=== PATIENT | female | born 1945 | race Caucasian/White ===

== ENCOUNTER 2023-07-29 15:25 | Inpatient (IN) | payer OTHER ==
[2023-07-29] MEDS ORDERED: SODIUM CHLORIDE 1,769 ML IV ONE (16:36)
[2023-07-29] MEDS ORDERED: ACETAMINOPHEN 1000 MG/100 ML BAG IVPB ONE (17:20)
[2023-07-29] MEDS ORDERED: ACETAMINOPHEN INJECTION 100 ML IVPB ONE (17:21)
[2023-07-29 17:27] LABS: VENOUS BASE EXCESS 3.5 mmol/L (-2-2); VENOUS O2 SATURATION 74.2 % (70-80); VENOUS PCO2 35.6 mmHg (38-52); VENOUS PH 7.493 (7.310-7.410)
[2023-07-29 17:33] LABS: BASO % 0.1 % (0-2.0); HEMATOCRIT 34.2 % (32.4-45.2); HEMOGLOBIN 11.2 GM/dL (10.7-15.3); LYMPH % 7.3 % (8-40); MCH 30.7 pg (25.7-33.7); MCHC 32.9 g/dl (32.0-36.0); MEAN CELL VOLUME 93.5 fl (80-96); MONO % 6.3 % (3.8-10.2); NEUT % 86.3 % (42.8-82.8); PLATELET COUNT 297 10^3/uL (134-434); RBC 3.66 M/mm3 (3.60-5.2); RDW 16.8 % (11.6-15.6); WHITE BLOOD COUNT 7.8 K/mm3 (4.0-10.0)
[2023-07-29 17:42] LABS: INR 2.71 (0.83-1.09); PROTHROMBIN TIME (PATIENT) 31.1 SEC (9.7-13.0)
[2023-07-29 17:44] LABS: ACTIVATED PTT 35.5 SECONDS (25.2-36.5)
[2023-07-29 17:49] LABS: CHLORIDE 125 mmol/L (98-107); SODIUM 156 mmol/L (136-145)
[2023-07-29 17:51] LABS: ALBUMIN 2.5 g/dl (3.4-5.0); BLOOD UREA NITROGEN 49.1 mg/dL (7-18); CO2 27 mmol/L (21-32)
[2023-07-29 17:52] LABS: GLUCOSE,RANDOM 108 mg/dL (74-106)
[2023-07-29 17:54] LABS: CREATININE 0.8 mg/dL (0.55-1.3); SGOT/AST 20 U/L (15-37)
[2023-07-29 17:55] LABS: SGPT/ALT 17 U/L (13-61)
[2023-07-29 17:56] LABS: BILIRUBIN,TOTAL 1.4 mg/dL (0.2-1); TOT PROT 6.1 g/dl (6.4-8.2)
[2023-07-29 17:57] LABS: ALK PHOS 117 U/L (45-117)
[2023-07-29 17:59] LABS: LACTIC ACID 2.2 mmol/L (0.4-2.0)
[2023-07-29 18:04] LABS: ANION GAP 4 mmol/L (4-13); POTASSIUM 2.4 mmol/L (3.5-5.1)
[2023-07-29] MEDS ORDERED: SODIUM CHLORIDE 0.45% 1,000 ML IV SCH (18:30)
[2023-07-29] MEDS ORDERED: KCL 10 MEQ IVPB 10 MEQ/100 ML INFUS.BAG IVPB ONE ×3 (18:52→21:54)
[2023-07-29] MEDS: KCL 10 MEQ IVPB 10 MEQ/100 ML INFUS.BAG IVPB SCH ×3 (18:58→21:59)
[2023-07-29] MEDS ORDERED: SODIUM PHOSPHATE/NA BIPHOS 133 ML ENEMA PR ONE (20:46)
[2023-07-29 22:11] LABS: EPI CELLS 4 /uL (0-25.1); HYALINE CASTS 7 /uL (0-3.1); URINE APPEARANCE CLOUDY; URINE BACTERIA >9,000 /uL (0-1359); URINE BILIRUBIN 1+ (NEGATIVE); URINE COLOR DK YELLOW; URINE GLUCOSE (UA) NEGATIVE (NEGATIVE); URINE KETONE TRACE (NEGATIVE); URINE LEUK ESTERASE 1+ (NEGATIVE); URINE NITRITE POSITIVE (NEGATIVE); URINE PROTEIN 1+ (NEGATIVE); URINE RBC 14 /uL (0-23.9); URINE WBC 297 /uL (0-25.8)
[2023-07-29 22:14] LABS: POTASSIUM 3.4 mmol/L (3.5-5.1)
[2023-07-29 22:16] LABS: BLOOD UREA NITROGEN 49.9 mg/dL (7-18)
[2023-07-29] MEDS ORDERED: CEFTRIAXONE 1,000 MG in DEXTROSE 5%-WATER - 50 ML IVPB ONE (22:17)
[2023-07-29] MEDS ORDERED: CEFTRIAXONE 1 GM/50 ML BAG ONE (22:50)
[2023-07-29 22:57] LABS: CALCIUM 7.2 mg/dL (8.5-10.1); CREATININE 0.7 mg/dL (0.55-1.3)
[2023-07-30 07:47] LABS: BASO % 0.3 % (0-2.0); EOS % 0.1 % (0-4.5); HEMATOCRIT 31.6 % (32.4-45.2); HEMOGLOBIN 10.4 GM/dL (10.7-15.3); LYMPH % 7.1 % (8-40); MCH 31.3 pg (25.7-33.7); MCHC 32.9 g/dl (32.0-36.0); MEAN CELL VOLUME 94.9 fl (80-96); MEAN PLT VOLUME 7.5 fl (7.5-11.1); MONO % 5.5 % (3.8-10.2); PLATELET COUNT 258 10^3/uL (134-434); RBC 3.33 M/mm3 (3.60-5.2); RDW 16.7 % (11.6-15.6); WHITE BLOOD COUNT 6.9 K/mm3 (4.0-10.0)
[2023-07-30 08:29] LABS: CHLORIDE 123 mmol/L (98-107); SODIUM 154 mmol/L (136-145)
[2023-07-30 08:43] LABS: ALBUMIN 2.2 g/dl (3.4-5.0); CALCIUM 7.6 mg/dL (8.5-10.1); CO2 24 mmol/L (21-32)
[2023-07-30 08:44] LABS: BLOOD UREA NITROGEN 45.2 mg/dL (7-18)
[2023-07-30 08:46] LABS: CREATININE 0.7 mg/dL (0.55-1.3); GLUCOSE,RANDOM 90 mg/dL (74-106)
[2023-07-30 08:47] LABS: SGOT/AST 17 U/L (15-37); SGPT/ALT 14 U/L (13-61)
[2023-07-30 08:48] LABS: BILIRUBIN,TOTAL 1.1 mg/dL (0.2-1); TOT PROT 5.5 g/dl (6.4-8.2)
[2023-07-30 08:49] LABS: ALK PHOS 105 U/L (45-117)
[2023-07-30 08:56] LABS: ANION GAP 7 mmol/L (4-13); POTASSIUM 2.3 mmol/L (3.5-5.1)
[2023-07-30] MEDS ORDERED: CEFTRIAXONE 1 GM/50 ML BAG ONE (09:05)
[2023-07-30] MEDS ORDERED: HEPARIN NA (PORCINE) 5,000 UNITS/ML 1ML VIAL ONE (09:05)
[2023-07-30] MEDS: HEPARIN NA (PORCINE) 5,000 UNITS/ML 1ML VIAL SQ SCH ×2 (09:10→21:42)
[2023-07-30] MEDS ORDERED: CEFTRIAXONE 1 GM in DEXTROSE 5%-WATER - 50 ML IVPB SCH (10:00)
[2023-07-30] MEDS: POTASSIUM CHLORIDE ORAL LIQUID 20 MEQ/15 ML PO ONE ×2 (12:00→12:01)
[2023-07-30] MEDS: KCL 10 MEQ IVPB 10 MEQ/100 ML INFUS.BAG IVPB SCH ×6 (12:00→23:16)
[2023-07-30] MEDS ORDERED: KCL 10 MEQ IVPB 20 MEQ/200 ML INFUS.BAG IVPB ONE (12:52)
[2023-07-30] MEDS ORDERED: POTASSIUM CHLORIDE ORAL LIQUID 20 MEQ/15 ML PO ONE ×2 (13:31→22:00)
[2023-07-30] MEDS ORDERED: KCL 10 MEQ IVPB 10 MEQ/100 ML INFUS.BAG IVPB ONE ×2 (13:39→15:21)
[2023-07-30] MEDS ORDERED: MAGNESIUM SULF 50% (8.12 MEQ/2 ML-1 GM VIAL) IVPB ONE (14:00)
[2023-07-30] MEDS ORDERED: MAGNESIUM SULFATE IN WATER 2 GM/50 ML IVPB IVPB ONE (14:21)
[2023-07-30] MEDS: D5-1/2NS+40 MEQ KCL - 40 MEQ/1,000 ML INFUS.BAG IV SCH (15:20)
[2023-07-30 16:14] LABS: CHLORIDE 124 mmol/L (98-107)
[2023-07-30 16:17] LABS: CALCIUM 7.8 mg/dL (8.5-10.1)
[2023-07-30 16:18] LABS: BLOOD UREA NITROGEN 46.7 mg/dL (7-18); CO2 25 mmol/L (21-32); GLUCOSE,RANDOM 84 mg/dL (74-106)
[2023-07-30 16:21] LABS: CREATININE 0.6 mg/dL (0.55-1.3)
[2023-07-30 16:28] LABS: ANION GAP 1 mmol/L (4-13); POTASSIUM 2.4 mmol/L (3.5-5.1); SODIUM 150 mmol/L (136-145)
[2023-07-30] MEDS ORDERED: BISACODYL 10 MG SUPP.RECT PR ONE (17:51)
[2023-07-30] MEDS ORDERED: KCL 10 MEQ IVPB 10 MEQ/100 ML INFUS.BAG IVPB SCH (18:00)
[2023-07-30] MEDS ORDERED: BISACODYL 10 MG SUPP.RECT ONE (18:23)
[2023-07-30 23:20] LABS: MAGNESIUM 1.9 mg/dL (1.8-2.4)
[2023-07-30 23:24] LABS: PHOSPHOROUS 2.8 mg/dL (2.5-4.9)
[2023-07-31] MEDS: KCL 10 MEQ IVPB 10 MEQ/100 ML INFUS.BAG IVPB SCH ×4 (00:28→17:30)
[2023-07-31 07:35] LABS: BASO % 0.2 % (0-2.0); EOS % 0.3 % (0-4.5); HEMATOCRIT 30.5 % (32.4-45.2); LYMPH % 8.5 % (8-40); MCHC 32.7 g/dl (32.0-36.0); MEAN CELL VOLUME 94.8 fl (80-96); MEAN PLT VOLUME 7.6 fl (7.5-11.1); MONO % 5.7 % (3.8-10.2); NEUT % 85.3 % (42.8-82.8); PLATELET COUNT 251 10^3/uL (134-434); RBC 3.21 M/mm3 (3.60-5.2); RDW 16.7 % (11.6-15.6); WHITE BLOOD COUNT 5.6 K/mm3 (4.0-10.0)
[2023-07-31 08:00] LABS: CHLORIDE 126 mmol/L (98-107); SODIUM 154 mmol/L (136-145)
[2023-07-31 08:14] LABS: ALBUMIN 2.2 g/dl (3.4-5.0); BLOOD UREA NITROGEN 46.6 mg/dL (7-18); CALCIUM 7.7 mg/dL (8.5-10.1); CO2 24 mmol/L (21-32); GLUCOSE,RANDOM 94 mg/dL (74-106); MAGNESIUM 2.6 mg/dL (1.8-2.4)
[2023-07-31 08:17] LABS: SGOT/AST 15 U/L (15-37); SGPT/ALT 14 U/L (13-61)
[2023-07-31 08:18] LABS: CREATININE 0.6 mg/dL (0.55-1.3); TOT PROT 5.4 g/dl (6.4-8.2)
[2023-07-31 08:19] LABS: ALK PHOS 97 U/L (45-117); BILIRUBIN,TOTAL 0.8 mg/dL (0.2-1)
[2023-07-31 08:22] LABS: ANION GAP 4 mmol/L (4-13); POTASSIUM 2.8 mmol/L (3.5-5.1)
[2023-07-31] MEDS: HEPARIN NA (PORCINE) 5,000 UNITS/ML 1ML VIAL SQ SCH ×2 (10:55→22:36)
[2023-07-31] MEDS: PIPERACILLIN/TAZOB 2.25 GM 2.25 GM in DEXTROSE 5%-WATER - 50 ML IVPB SCH ×2 (10:56→18:33)
[2023-07-31 14:54] VITALS: BMI 17.9
[2023-07-31] MEDS: D5-1/2NS+40 MEQ KCL - 40 MEQ/1,000 ML INFUS.BAG IV SCH (15:33)
[2023-07-31] MEDS: THIAMINE HCL 100 MG TABLET (FP) PO SCH (15:34)
[2023-08-01] MEDS: PIPERACILLIN/TAZOB 2.25 GM 2.25 GM in DEXTROSE 5%-WATER - 50 ML IVPB SCH ×3 (04:13→17:05)
[2023-08-01 08:12] LABS: BASO % 0.2 % (0-2.0); EOS % 0.2 % (0-4.5); HEMATOCRIT 29.5 % (32.4-45.2); HEMOGLOBIN 9.6 GM/dL (10.7-15.3); LYMPH % 8.6 % (8-40); MCH 30.6 pg (25.7-33.7); MCHC 32.6 g/dl (32.0-36.0); MEAN CELL VOLUME 93.8 fl (80-96); MEAN PLT VOLUME 7.5 fl (7.5-11.1); MONO % 5.6 % (3.8-10.2); NEUT % 85.4 % (42.8-82.8); PLATELET COUNT 231 10^3/uL (134-434); RBC 3.14 M/mm3 (3.60-5.2); RDW 17.1 % (11.6-15.6); WHITE BLOOD COUNT 4.6 K/mm3 (4.0-10.0)
[2023-08-01 08:29] LABS: CHLORIDE 127 mmol/L (98-107); SODIUM 153 mmol/L (136-145)
[2023-08-01 08:35] LABS: ALBUMIN 2.2 g/dl (3.4-5.0); BLOOD UREA NITROGEN 43.5 mg/dL (7-18); CALCIUM 7.8 mg/dL (8.5-10.1); CO2 27 mmol/L (21-32); GLUCOSE,RANDOM 112 mg/dL (74-106)
[2023-08-01 08:38] LABS: CREATININE 0.6 mg/dL (0.55-1.3); SGPT/ALT 13 U/L (13-61)
[2023-08-01 08:39] LABS: SGOT/AST 15 U/L (15-37)
[2023-08-01 08:40] LABS: BILIRUBIN,TOTAL 0.8 mg/dL (0.2-1); TOT PROT 5.3 g/dl (6.4-8.2)
[2023-08-01 08:41] LABS: ALK PHOS 89 U/L (45-117)
[2023-08-01 08:51] LABS: ANION GAP -1 mmol/L (4-13); POTASSIUM 2.9 mmol/L (3.5-5.1)
[2023-08-01] MEDS: HEPARIN NA (PORCINE) 5,000 UNITS/ML 1ML VIAL SQ SCH ×2 (09:20→21:41)
[2023-08-01] MEDS: THIAMINE HCL 100 MG TABLET (FP) PO SCH ×2 (09:21→10:12)
[2023-08-01 10:04] LABS: MAGNESIUM 2.3 mg/dL (1.8-2.4)
[2023-08-01] MEDS: KCL 10 MEQ IVPB 10 MEQ/100 ML INFUS.BAG IVPB SCH ×3 (10:09→12:15)
[2023-08-01] MEDS: D5-1/2NS+40 MEQ KCL - 40 MEQ/1,000 ML INFUS.BAG IV SCH (12:15)
[2023-08-01] MEDS: SENNOSIDES 8.6MG TABLET (FP) PO SCH ×2 (21:42→21:50)
[2023-08-02] MEDS: PIPERACILLIN/TAZOB 2.25 GM 2.25 GM in DEXTROSE 5%-WATER - 50 ML IVPB SCH ×3 (03:00→17:34)
[2023-08-02 07:36] LABS: BASO % 0.2 % (0-2.0); EOS % 0.7 % (0-4.5); HEMATOCRIT 27.6 % (32.4-45.2); HEMOGLOBIN 9.1 GM/dL (10.7-15.3); LYMPH % 10.7 % (8-40); MCH 31.2 pg (25.7-33.7); MCHC 32.9 g/dl (32.0-36.0); MEAN CELL VOLUME 94.8 fl (80-96); MEAN PLT VOLUME 7.6 fl (7.5-11.1); MONO % 6.8 % (3.8-10.2); NEUT % 81.6 % (42.8-82.8); PLATELET COUNT 205 10^3/uL (134-434); RBC 2.91 M/mm3 (3.60-5.2); RDW 16.7 % (11.6-15.6); WHITE BLOOD COUNT 3.6 K/mm3 (4.0-10.0)
[2023-08-02 07:51] LABS: CHLORIDE 132 mmol/L (98-107); SODIUM 155 mmol/L (136-145)
[2023-08-02 07:53] LABS: ALBUMIN 1.9 g/dl (3.4-5.0); BLOOD UREA NITROGEN 36.5 mg/dL (7-18); CALCIUM 7.2 mg/dL (8.5-10.1); CO2 24 mmol/L (21-32); GLUCOSE,RANDOM 96 mg/dL (74-106)
[2023-08-02 07:56] LABS: SGPT/ALT 11 U/L (13-61)
[2023-08-02 07:57] LABS: CREATININE 0.5 mg/dL (0.55-1.3); SGOT/AST 16 U/L (15-37)
[2023-08-02 07:58] LABS: BILIRUBIN,TOTAL 0.6 mg/dL (0.2-1); TOT PROT 4.8 g/dl (6.4-8.2)
[2023-08-02 07:59] LABS: ALK PHOS 80 U/L (45-117)
[2023-08-02 08:05] LABS: ANION GAP 0 mmol/L (4-13); POTASSIUM 2.6 mmol/L (3.5-5.1)
[2023-08-02] MEDS: KCL 10 MEQ IVPB 10 MEQ/100 ML INFUS.BAG IVPB SCH ×3 (08:53→11:09)
[2023-08-02] MEDS: HEPARIN NA (PORCINE) 5,000 UNITS/ML 1ML VIAL SQ SCH ×2 (09:59→21:43)
[2023-08-02] MEDS: THIAMINE HCL 100 MG TABLET (FP) PO SCH ×2 (10:07→13:14)
[2023-08-02] MEDS: POTASSIUM CHLORIDE ORAL LIQUID 20 MEQ/15 ML PO SCH ×3 (10:08→21:43)
[2023-08-02] MEDS: FAMOTIDINE 20 MG TABLET PO SCH ×3 (11:06→21:43)
[2023-08-02 12:05] LABS: IRON SERUM 22 ug/dL (50-175); TOTAL IRON BINDING CAPACITY 117 ug/dL (250-450)
[2023-08-02] MEDS: D5-1/2NS+40 MEQ KCL - 40 MEQ/1,000 ML INFUS.BAG IV SCH (13:46)
[2023-08-02] MEDS: SENNOSIDES 8.6MG TABLET (FP) PO SCH (21:43)
[2023-08-03] MEDS: PIPERACILLIN/TAZOB 2.25 GM 2.25 GM in DEXTROSE 5%-WATER - 50 ML IVPB SCH ×3 (02:00→17:16)
[2023-08-03] MEDS: D5-1/2NS+40 MEQ KCL - 40 MEQ/1,000 ML INFUS.BAG IV SCH (03:31)
[2023-08-03 07:07] LABS: BASO % 0.5 % (0-2.0); EOS % 0.6 % (0-4.5); HEMATOCRIT 27.7 % (32.4-45.2); HEMOGLOBIN 8.9 GM/dL (10.7-15.3); LYMPH % 12.6 % (8-40); MCH 30.7 pg (25.7-33.7); MCHC 32.1 g/dl (32.0-36.0); MEAN CELL VOLUME 95.8 fl (80-96); MEAN PLT VOLUME 7.5 fl (7.5-11.1); MONO % 7.8 % (3.8-10.2); NEUT % 78.5 % (42.8-82.8); PLATELET COUNT 209 10^3/uL (134-434); RBC 2.89 M/mm3 (3.60-5.2); RDW 17.1 % (11.6-15.6); WHITE BLOOD COUNT 3.1 K/mm3 (4.0-10.0)
[2023-08-03 07:18] LABS: CHLORIDE 131 mmol/L (98-107); SODIUM 156 mmol/L (136-145)
[2023-08-03 07:25] LABS: CALCIUM 7.5 mg/dL (8.5-10.1)
[2023-08-03 07:26] LABS: BLOOD UREA NITROGEN 29.2 mg/dL (7-18); CO2 22 mmol/L (21-32); GLUCOSE,RANDOM 92 mg/dL (74-106)
[2023-08-03 07:28] LABS: CREATININE 0.6 mg/dL (0.55-1.3); SGOT/AST 16 U/L (15-37)
[2023-08-03 07:29] LABS: SGPT/ALT 12 U/L (13-61)
[2023-08-03 07:30] LABS: BILIRUBIN,TOTAL 0.6 mg/dL (0.2-1); TOT PROT 4.9 g/dl (6.4-8.2)
[2023-08-03 07:31] LABS: ALK PHOS 81 U/L (45-117)
[2023-08-03 07:37] LABS: ANION GAP 3 mmol/L (4-13); POTASSIUM 2.5 mmol/L (3.5-5.1)
[2023-08-03] MEDS ORDERED: D5-1/3NS+40 MEQ KCL - 40 MEQ/1,000 ML INFUS.BAG IV SCH (09:30)
[2023-08-03] MEDS: HEPARIN NA (PORCINE) 5,000 UNITS/ML 1ML VIAL SQ SCH ×2 (09:51→22:11)
[2023-08-03] MEDS: FAMOTIDINE 20 MG TABLET PO SCH ×2 (09:54→22:19)
[2023-08-03] MEDS: THIAMINE HCL 100 MG TABLET (FP) PO SCH (09:54)
[2023-08-03] MEDS: POTASSIUM CHLORIDE ORAL LIQUID 20 MEQ/15 ML PO SCH (09:54)
[2023-08-03] MEDS ORDERED: DEXTROSE 5%-0.2% SALINE - 1,000 ML IV SCH (10:15)
[2023-08-03] MEDS: KCL 10 MEQ IVPB 10 MEQ/100 ML INFUS.BAG IVPB SCH ×3 (11:24→13:41)
[2023-08-03] MEDS ORDERED: IRON SUCROSE INJECTION 200 MG in SODIUM CHLORIDE 90 ML IVPB ONE (12:30)
[2023-08-03] MEDS: D5-1/4NS+20 MEQ KCL - 20 MEQ/1,000 ML INFUS.BAG IV SCH (16:00)
[2023-08-03 17:10] LABS: CHLORIDE 131 mmol/L (98-107); SODIUM 154 mmol/L (136-145)
[2023-08-03 17:12] LABS: CALCIUM 7.5 mg/dL (8.5-10.1)
[2023-08-03 17:13] LABS: BLOOD UREA NITROGEN 27.7 mg/dL (7-18); CO2 20 mmol/L (21-32); GLUCOSE,RANDOM 94 mg/dL (74-106)
[2023-08-03 17:15] LABS: ANION GAP 3 mmol/L (4-13); CREATININE 0.6 mg/dL (0.55-1.3); PHOSPHOROUS 2.2 mg/dL (2.5-4.9); POTASSIUM 2.7 mmol/L (3.5-5.1)
[2023-08-03] MEDS: SENNOSIDES 8.6MG TABLET (FP) PO SCH (22:19)
[2023-08-04] MEDS: PIPERACILLIN/TAZOB 2.25 GM 2.25 GM in DEXTROSE 5%-WATER - 50 ML IVPB SCH ×3 (03:00→17:00)
[2023-08-04 07:37] LABS: BASO % 0.3 % (0-2.0); EOS % 0.8 % (0-4.5); HEMATOCRIT 28.3 % (32.4-45.2); MCH 30.5 pg (25.7-33.7); MCHC 31.6 g/dl (32.0-36.0); MEAN CELL VOLUME 96.3 fl (80-96); MONO % 6.2 % (3.8-10.2); NEUT % 78.7 % (42.8-82.8); PLATELET COUNT 202 10^3/uL (134-434); RBC 2.94 M/mm3 (3.60-5.2); RDW 17.6 % (11.6-15.6); WHITE BLOOD COUNT 3.4 K/mm3 (4.0-10.0)
[2023-08-04 07:57] LABS: CHLORIDE 128 mmol/L (98-107); SODIUM 155 mmol/L (136-145)
[2023-08-04 08:00] LABS: CALCIUM 7.3 mg/dL (8.5-10.1)
[2023-08-04 08:01] LABS: ALBUMIN 1.9 g/dl (3.4-5.0); CO2 22 mmol/L (21-32)
[2023-08-04 08:04] LABS: BLOOD UREA NITROGEN 19.6 mg/dL (7-18); CREATININE 0.6 mg/dL (0.55-1.3); GLUCOSE,RANDOM 86 mg/dL (74-106); SGPT/ALT 13 U/L (13-61)
[2023-08-04] MEDS: AMINO ACIDS/PROTEIN HYDROLYS 30 ML LIQUID.PKT PO SCH ×2 (08:04→16:55)
[2023-08-04 08:05] LABS: TOT PROT 4.8 g/dl (6.4-8.2)
[2023-08-04 08:06] LABS: BILIRUBIN,TOTAL 0.6 mg/dL (0.2-1)
[2023-08-04 08:07] LABS: ALK PHOS 78 U/L (45-117); SGOT/AST 15 U/L (15-37)
[2023-08-04 08:26] LABS: ANION GAP 5 mmol/L (4-13); POTASSIUM 2.3 mmol/L (3.5-5.1)
[2023-08-04] MEDS ORDERED: LEVOTHYROXINE NA 25 MCG TABLET (FP) PO ONE (09:21)
[2023-08-04] MEDS: KCL 10 MEQ IVPB 10 MEQ/100 ML INFUS.BAG IVPB SCH ×3 (09:51→13:48)
[2023-08-04] MEDS: HEPARIN NA (PORCINE) 5,000 UNITS/ML 1ML VIAL SQ SCH ×2 (09:56→22:26)
[2023-08-04] MEDS ORDERED: POTASSIUM CHLORIDE ORAL LIQUID 20 MEQ/15 ML PO SCH (10:00)
[2023-08-04] MEDS: FAMOTIDINE 20 MG TABLET PO SCH ×2 (10:01→22:25)
[2023-08-04] MEDS: THIAMINE HCL 100 MG TABLET (FP) PO SCH (10:03)
[2023-08-04] MEDS: POTASSIUM CHLORIDE ORAL LIQUID 20 MEQ/15 ML PO SCH ×3 (10:06→22:25)
[2023-08-04] MEDS: D5-1/4NS+20 MEQ KCL - 20 MEQ/1,000 ML INFUS.BAG IV SCH (11:09)
[2023-08-04 11:35] LABS: CHLORIDE 126 mmol/L (98-107); SODIUM 153 mmol/L (136-145)
[2023-08-04 11:36] LABS: CALCIUM 7.7 mg/dL (8.5-10.1); CO2 23 mmol/L (21-32); GLUCOSE,RANDOM 93 mg/dL (74-106)
[2023-08-04 11:37] LABS: BLOOD UREA NITROGEN 17.8 mg/dL (7-18)
[2023-08-04 11:40] LABS: CREATININE 0.6 mg/dL (0.55-1.3)
[2023-08-04 11:43] LABS: ANION GAP 5 mmol/L (4-13); POTASSIUM 2.3 mmol/L (3.5-5.1)
[2023-08-04] MEDS: POTASSIUM CHLORIDE 40 MEQ in DEXTROSE 5%-WATER - 1,000 ML IV SCH (12:16)
[2023-08-04] MEDS: SENNOSIDES 8.6MG TABLET (FP) PO SCH (22:25)
[2023-08-05] MEDS: PIPERACILLIN/TAZOB 2.25 GM 2.25 GM in DEXTROSE 5%-WATER - 50 ML IVPB SCH ×2 (03:30→09:17)
[2023-08-05] MEDS: LEVOTHYROXINE SODIUM 100 MCG 5 ML VIAL IVPUSH SCH (06:48)
[2023-08-05] MEDS: POTASSIUM CHLORIDE 40 MEQ in DEXTROSE 5%-WATER - 1,000 ML IV SCH ×2 (06:48→13:50)
[2023-08-05] MEDS: POTASSIUM CHLORIDE ORAL LIQUID 20 MEQ/15 ML PO SCH ×3 (06:48→21:06)
[2023-08-05] MEDS ORDERED: LEVOTHYROXINE NA 25 MCG TABLET (FP) PO SCH (07:00)
[2023-08-05 07:18] LABS: CHLORIDE 122 mmol/L (98-107); SODIUM 146 mmol/L (136-145)
[2023-08-05 07:26] LABS: CALCIUM 7.4 mg/dL (8.5-10.1)
[2023-08-05 07:27] LABS: BLOOD UREA NITROGEN 17.4 mg/dL (7-18); CO2 20 mmol/L (21-32); GLUCOSE,RANDOM 89 mg/dL (74-106)
[2023-08-05 07:30] LABS: CREATININE 0.6 mg/dL (0.55-1.3)
[2023-08-05 07:38] LABS: ANION GAP 4 mmol/L (4-13); POTASSIUM 2.6 mmol/L (3.5-5.1)
[2023-08-05] MEDS: KCL 10 MEQ IVPB 10 MEQ/100 ML INFUS.BAG IVPB SCH ×5 (08:32→21:35)
[2023-08-05] MEDS: AMINO ACIDS/PROTEIN HYDROLYS 30 ML LIQUID.PKT PO SCH ×2 (09:09→16:37)
[2023-08-05] MEDS: HEPARIN NA (PORCINE) 5,000 UNITS/ML 1ML VIAL SQ SCH ×2 (09:17→21:05)
[2023-08-05] MEDS: FAMOTIDINE 20 MG TABLET PO SCH ×2 (09:29→21:06)
[2023-08-05] MEDS: THIAMINE HCL 100 MG TABLET (FP) PO SCH (09:29)
[2023-08-05] MEDS: PIPERACILLIN/TAZOB 3.375 GM 3.375 GM in DEXTROSE 5%-WATER - 50 ML IVPB SCH (17:17)
[2023-08-05] MEDS ORDERED: AMOX TR/POT CLAV 500MG/125MG TABLETS (FP) PO SCH (17:30)
[2023-08-05] MEDS: SENNOSIDES 8.6MG TABLET (FP) PO SCH (21:06)
[2023-08-06] MEDS: PIPERACILLIN/TAZOB 3.375 GM 3.375 GM in DEXTROSE 5%-WATER - 50 ML IVPB SCH ×3 (02:14→17:29)
[2023-08-06] MEDS: POTASSIUM CHLORIDE 40 MEQ in DEXTROSE 5%-WATER - 1,000 ML IV SCH ×2 (02:33→16:48)
[2023-08-06] MEDS: LEVOTHYROXINE SODIUM 100 MCG 5 ML VIAL IVPUSH SCH (06:30)
[2023-08-06] MEDS: POTASSIUM CHLORIDE ORAL LIQUID 20 MEQ/15 ML PO SCH ×3 (06:31→21:40)
[2023-08-06 09:06] LABS: CHLORIDE 120 mmol/L (98-107); SODIUM 144 mmol/L (136-145)
[2023-08-06 09:13] LABS: CALCIUM 7.2 mg/dL (8.5-10.1)
[2023-08-06 09:14] LABS: BLOOD UREA NITROGEN 17.2 mg/dL (7-18); CO2 20 mmol/L (21-32); GLUCOSE,RANDOM 85 mg/dL (74-106); MAGNESIUM 1.8 mg/dL (1.8-2.4)
[2023-08-06 09:17] LABS: ALK PHOS 80 U/L (45-117); CREATININE 0.6 mg/dL (0.55-1.3); SGOT/AST 17 U/L (15-37)
[2023-08-06 09:19] LABS: BILIRUBIN,TOTAL 0.7 mg/dL (0.2-1); TOT PROT 4.8 g/dl (6.4-8.2)
[2023-08-06 09:21] LABS: SGPT/ALT 13 U/L (13-61)
[2023-08-06 09:22] LABS: ANION GAP 5 mmol/L (4-13); POTASSIUM 2.9 mmol/L (3.5-5.1)
[2023-08-06] MEDS: THIAMINE HCL 100 MG TABLET (FP) PO SCH (09:36)
[2023-08-06] MEDS: FAMOTIDINE 20 MG TABLET PO SCH ×2 (09:36→21:40)
[2023-08-06] MEDS: AMINO ACIDS/PROTEIN HYDROLYS 30 ML LIQUID.PKT PO SCH ×2 (09:36→17:11)
[2023-08-06] MEDS: KCL 10 MEQ IVPB 10 MEQ/100 ML INFUS.BAG IVPB SCH ×3 (11:54→14:36)
[2023-08-06] MEDS ORDERED: POTASSIUM PHOSPHATE 30 MM in DEXTROSE 5%-WATER - 500 ML IVPB ONE (17:00)
[2023-08-06] MEDS: SENNOSIDES 8.6MG TABLET (FP) PO SCH (21:40)
[2023-08-07] MEDS: PIPERACILLIN/TAZOB 3.375 GM 3.375 GM in DEXTROSE 5%-WATER - 50 ML IVPB SCH ×3 (02:00→17:08)
[2023-08-07] MEDS: LEVOTHYROXINE SODIUM 100 MCG 5 ML VIAL IVPUSH SCH (06:40)
[2023-08-07] MEDS: POTASSIUM CHLORIDE ORAL LIQUID 20 MEQ/15 ML PO SCH ×3 (06:40→21:39)
[2023-08-07] MEDS: POTASSIUM CHLORIDE 40 MEQ in DEXTROSE 5%-WATER - 1,000 ML IV SCH ×2 (06:58→17:07)
[2023-08-07] MEDS: FAMOTIDINE 20 MG TABLET PO SCH ×2 (10:01→21:39)
[2023-08-07] MEDS: THIAMINE HCL 100 MG TABLET (FP) PO SCH (10:01)
[2023-08-07] MEDS: AMINO ACIDS/PROTEIN HYDROLYS 30 ML LIQUID.PKT PO SCH ×2 (10:01→17:07)
[2023-08-07 17:44] LABS: CHLORIDE 112 mmol/L (98-107); SODIUM 138 mmol/L (136-145)
[2023-08-07 17:47] LABS: ALBUMIN 1.9 g/dl (3.4-5.0); BLOOD UREA NITROGEN 13.9 mg/dL (7-18); CO2 19 mmol/L (21-32); GLUCOSE,RANDOM 97 mg/dL (74-106)
[2023-08-07 17:50] LABS: CREATININE 0.6 mg/dL (0.55-1.3); SGOT/AST 17 U/L (15-37); SGPT/ALT 12 U/L (13-61)
[2023-08-07 17:52] LABS: BILIRUBIN,TOTAL 0.9 mg/dL (0.2-1); TOT PROT 4.9 g/dl (6.4-8.2)
[2023-08-07 17:53] LABS: ALK PHOS 84 U/L (45-117); ANION GAP 7 mmol/L (4-13); POTASSIUM 2.8 mmol/L (3.5-5.1)
[2023-08-07] MEDS: KCL 10 MEQ IVPB 10 MEQ/100 ML INFUS.BAG IVPB SCH ×2 (18:18→20:30)
[2023-08-07] MEDS: SENNOSIDES 8.6MG TABLET (FP) PO SCH (21:39)
[2023-08-07] MEDS: HEPARIN NA (PORCINE) 5,000 UNITS/ML 1ML VIAL SQ SCH (21:42)
[2023-08-08] MEDS: PIPERACILLIN/TAZOB 3.375 GM 3.375 GM in DEXTROSE 5%-WATER - 50 ML IVPB SCH ×3 (02:00→18:31)
[2023-08-08] MEDS: POTASSIUM CHLORIDE ORAL LIQUID 20 MEQ/15 ML PO SCH ×3 (05:05→22:49)
[2023-08-08] MEDS: POTASSIUM CHLORIDE 40 MEQ in DEXTROSE 5%-WATER - 1,000 ML IV SCH ×2 (05:05→06:12)
[2023-08-08] MEDS: LEVOTHYROXINE SODIUM 100 MCG 5 ML VIAL IVPUSH SCH (06:12)
[2023-08-08 07:03] LABS: BASO % 0.6 % (0-2.0); EOS % 1.2 % (0-4.5); HEMATOCRIT 25.8 % (32.4-45.2); HEMOGLOBIN 8.5 GM/dL (10.7-15.3); LYMPH % 21.9 % (8-40); MCH 30.8 pg (25.7-33.7); MCHC 32.9 g/dl (32.0-36.0); MEAN CELL VOLUME 93.5 fl (80-96); NEUT % 68.3 % (42.8-82.8); PLATELET COUNT 215 10^3/uL (134-434); RBC 2.75 M/mm3 (3.60-5.2); RDW 16.5 % (11.6-15.6); WHITE BLOOD COUNT 2.5 K/mm3 (4.0-10.0)
[2023-08-08 07:25] LABS: ALBUMIN 1.9 g/dl (3.4-5.0); CALCIUM 7.3 mg/dL (8.5-10.1)
[2023-08-08 07:26] LABS: BLOOD UREA NITROGEN 11.3 mg/dL (7-18)
[2023-08-08 07:28] LABS: CREATININE 0.6 mg/dL (0.55-1.3)
[2023-08-08 07:30] LABS: BILIRUBIN,TOTAL 0.9 mg/dL (0.2-1); TOT PROT 4.9 g/dl (6.4-8.2)
[2023-08-08] MEDS: AMINO ACIDS/PROTEIN HYDROLYS 30 ML LIQUID.PKT PO SCH ×2 (09:00→18:23)
[2023-08-08] MEDS: KCL 10 MEQ IVPB 10 MEQ/100 ML INFUS.BAG IVPB SCH ×4 (09:12→22:46)
[2023-08-08 09:44] LABS: ANISOCYTOSIS 1+; MACROCYTOSIS 0; OVALOCYTE 1+
[2023-08-08] MEDS: FAMOTIDINE 20 MG TABLET PO SCH ×3 (10:33→22:49)
[2023-08-08] MEDS: HEPARIN NA (PORCINE) 5,000 UNITS/ML 1ML VIAL SQ SCH ×2 (10:34→22:58)
[2023-08-08] MEDS: THIAMINE HCL 100 MG TABLET (FP) PO SCH ×2 (10:34→10:50)
[2023-08-08] MEDS: SENNOSIDES 8.6MG TABLET (FP) PO SCH (22:49)
[2023-08-09] MEDS: POTASSIUM CHLORIDE 40 MEQ in DEXTROSE 5%-WATER - 1,000 ML IV SCH
[2023-08-09] MEDS: KCL 10 MEQ IVPB 10 MEQ/100 ML INFUS.BAG IVPB SCH ×4 (00:09→14:10)
[2023-08-09] MEDS: PIPERACILLIN/TAZOB 3.375 GM 3.375 GM in DEXTROSE 5%-WATER - 50 ML IVPB SCH ×2 (02:15→10:11)
[2023-08-09] MEDS: POTASSIUM CHLORIDE ORAL LIQUID 20 MEQ/15 ML PO SCH ×3 (06:42→22:01)
[2023-08-09] MEDS: LEVOTHYROXINE SODIUM 100 MCG 5 ML VIAL IVPUSH SCH (06:42)
[2023-08-09 07:38] LABS: HEMATOCRIT 25.5 % (32.4-45.2); HEMOGLOBIN 8.5 GM/dL (10.7-15.3); MCH 30.2 pg (25.7-33.7); MCHC 33.3 g/dl (32.0-36.0); MEAN CELL VOLUME 90.8 fl (80-96); MEAN PLT VOLUME 7.4 fl (7.5-11.1); PLATELET COUNT 241 10^3/uL (134-434); RBC 2.81 M/mm3 (3.60-5.2); RDW 16.9 % (11.6-15.6); WHITE BLOOD COUNT 2.9 K/mm3 (4.0-10.0)
[2023-08-09 08:00] LABS: POTASSIUM 3.1 mmol/L (3.5-5.1)
[2023-08-09 08:06] LABS: CALCIUM 7.3 mg/dL (8.5-10.1)
[2023-08-09 08:08] LABS: ALBUMIN 1.8 g/dl (3.4-5.0); BLOOD UREA NITROGEN 8.6 mg/dL (7-18)
[2023-08-09 08:11] LABS: CREATININE 0.6 mg/dL (0.55-1.3)
[2023-08-09 08:12] LABS: TOT PROT 4.7 g/dl (6.4-8.2)
[2023-08-09] MEDS: HEPARIN NA (PORCINE) 5,000 UNITS/ML 1ML VIAL SQ SCH ×2 (10:11→22:09)
[2023-08-09] MEDS: FAMOTIDINE 20 MG TABLET PO SCH ×2 (10:11→22:01)
[2023-08-09] MEDS: AMINO ACIDS/PROTEIN HYDROLYS 30 ML LIQUID.PKT PO SCH ×2 (10:11→17:31)
[2023-08-09] MEDS: THIAMINE HCL 100 MG TABLET (FP) PO SCH (10:11)
[2023-08-09] MEDS ORDERED: KCL 10 MEQ IVPB 10 MEQ/100 ML INFUS.BAG IVPB SCH (14:15)
[2023-08-09] MEDS: SENNOSIDES 8.6MG TABLET (FP) PO SCH (22:01)
[2023-08-10] MEDS: POTASSIUM CHLORIDE ORAL LIQUID 20 MEQ/15 ML PO SCH ×3 (06:09→23:12)
[2023-08-10] MEDS: LEVOTHYROXINE SODIUM 100 MCG 5 ML VIAL IVPUSH SCH (06:16)
[2023-08-10 08:19] LABS: CALCIUM 7.7 mg/dL (8.5-10.1)
[2023-08-10 08:20] LABS: BLOOD UREA NITROGEN 8.6 mg/dL (7-18)
[2023-08-10 08:22] LABS: CREATININE 0.5 mg/dL (0.55-1.3)
[2023-08-10] MEDS: THIAMINE HCL 100 MG TABLET (FP) PO SCH (10:30)
[2023-08-10] MEDS: AMINO ACIDS/PROTEIN HYDROLYS 30 ML LIQUID.PKT PO SCH ×2 (10:30→17:11)
[2023-08-10] MEDS: FAMOTIDINE 20 MG TABLET PO SCH ×2 (10:30→23:12)
[2023-08-10] MEDS: HEPARIN NA (PORCINE) 5,000 UNITS/ML 1ML VIAL SQ SCH ×2 (17:12→23:03)
[2023-08-10] MEDS: SENNOSIDES 8.6MG TABLET (FP) PO SCH (22:04)
[2023-08-11] MEDS: LEVOTHYROXINE SODIUM 100 MCG 5 ML VIAL IVPUSH SCH ×2 (06:27→06:46)
[2023-08-11] MEDS: POTASSIUM CHLORIDE ORAL LIQUID 20 MEQ/15 ML PO SCH ×3 (06:27→22:00)
[2023-08-11] MEDS: FAMOTIDINE 20 MG TABLET PO SCH ×3 (10:10→22:00)
[2023-08-11] MEDS: HEPARIN NA (PORCINE) 5,000 UNITS/ML 1ML VIAL SQ SCH ×2 (10:10→23:00)
[2023-08-11] MEDS: AMINO ACIDS/PROTEIN HYDROLYS 30 ML LIQUID.PKT PO SCH ×3 (10:10→18:35)
[2023-08-11] MEDS: THIAMINE HCL 100 MG TABLET (FP) PO SCH ×2 (10:10→18:37)
[2023-08-11] MEDS: SENNOSIDES 8.6MG TABLET (FP) PO SCH (22:01)
[2023-08-12] MEDS: POTASSIUM CHLORIDE ORAL LIQUID 20 MEQ/15 ML PO SCH ×3 (06:46→22:57)
[2023-08-12] MEDS: LEVOTHYROXINE SODIUM 100 MCG 5 ML VIAL IVPUSH SCH (06:48)
[2023-08-12] MEDS: AMINO ACIDS/PROTEIN HYDROLYS 30 ML LIQUID.PKT PO SCH ×3 (08:25→16:33)
[2023-08-12] MEDS: THIAMINE HCL 100 MG TABLET (FP) PO SCH ×2 (10:24→10:39)
[2023-08-12] MEDS: FAMOTIDINE 20 MG TABLET PO SCH ×3 (10:25→22:57)
[2023-08-12] MEDS: HEPARIN NA (PORCINE) 5,000 UNITS/ML 1ML VIAL SQ SCH ×2 (10:39→23:03)
[2023-08-12 10:50] LABS: CHLORIDE 115 mmol/L (98-107); SODIUM 145 mmol/L (136-145)
[2023-08-12 10:52] LABS: CALCIUM 7.9 mg/dL (8.5-10.1); CO2 21 mmol/L (21-32); GLUCOSE,RANDOM 61 mg/dL (74-106)
[2023-08-12 10:56] LABS: CREATININE 0.4 mg/dL (0.55-1.3)
[2023-08-12 11:05] LABS: ANION GAP 9 mmol/L (4-13); POTASSIUM 2.5 mmol/L (3.5-5.1)
[2023-08-12] MEDS: KCL 10 MEQ IVPB 10 MEQ/100 ML INFUS.BAG IVPB SCH ×4 (12:57→16:00)
[2023-08-12] MEDS: POTASSIUM CHLORIDE 40 MEQ in DEXTROSE 5%-WATER - 1,000 ML IV SCH (17:05)
[2023-08-12] MEDS: SENNOSIDES 8.6MG TABLET (FP) PO SCH (22:57)
[2023-08-13] MEDS: LEVOTHYROXINE SODIUM 100 MCG 5 ML VIAL IVPUSH SCH (06:56)
[2023-08-13] MEDS: POTASSIUM CHLORIDE 40 MEQ in DEXTROSE 5%-WATER - 1,000 ML IV SCH ×3 (06:57→23:18)
[2023-08-13] MEDS: POTASSIUM CHLORIDE ORAL LIQUID 20 MEQ/15 ML PO SCH ×3 (06:57→21:38)
[2023-08-13 09:14] LABS: POTASSIUM 3.5 mmol/L (3.5-5.1)
[2023-08-13 09:18] LABS: BLOOD UREA NITROGEN 12.6 mg/dL (7-18)
[2023-08-13 09:19] LABS: CALCIUM 7.9 mg/dL (8.5-10.1)
[2023-08-13 09:20] LABS: MAGNESIUM 1.9 mg/dL (1.8-2.4)
[2023-08-13 09:21] LABS: CREATININE 0.5 mg/dL (0.55-1.3); PHOSPHOROUS 1.7 mg/dL (2.5-4.9)
[2023-08-13 09:23] LABS: BILIRUBIN,TOTAL 1.1 mg/dL (0.2-1); TOT PROT 5.3 g/dl (6.4-8.2)
[2023-08-13 09:28] LABS: ALBUMIN 2.2 g/dl (3.4-5.0)
[2023-08-13] MEDS: AMINO ACIDS/PROTEIN HYDROLYS 30 ML LIQUID.PKT PO SCH ×2 (09:45→16:59)
[2023-08-13] MEDS: HEPARIN NA (PORCINE) 5,000 UNITS/ML 1ML VIAL SQ SCH ×2 (09:46→21:37)
[2023-08-13] MEDS: FAMOTIDINE 20 MG TABLET PO SCH ×2 (09:46→21:38)
[2023-08-13] MEDS: THIAMINE HCL 100 MG TABLET (FP) PO SCH (09:46)
[2023-08-13] MEDS ORDERED: POTASSIUM PHOSPHATE 30 MM in DEXTROSE 5%-WATER - 500 ML IVPB ONE (16:00)
[2023-08-13] MEDS: SENNOSIDES 8.6MG TABLET (FP) PO SCH (21:38)
[2023-08-14] MEDS: POTASSIUM CHLORIDE ORAL LIQUID 20 MEQ/15 ML PO SCH ×3 (06:44→22:28)
[2023-08-14] MEDS: LEVOTHYROXINE SODIUM 100 MCG 5 ML VIAL IVPUSH SCH (06:45)
[2023-08-14] MEDS: AMINO ACIDS/PROTEIN HYDROLYS 30 ML LIQUID.PKT PO SCH ×2 (07:44→16:34)
[2023-08-14 08:54] LABS: POTASSIUM 4.3 mmol/L (3.5-5.1)
[2023-08-14 08:57] LABS: BLOOD UREA NITROGEN 14.3 mg/dL (7-18)
[2023-08-14 09:00] LABS: MAGNESIUM 1.8 mg/dL (1.8-2.4)
[2023-08-14 09:02] LABS: CALCIUM 7.5 mg/dL (8.5-10.1)
[2023-08-14 09:03] LABS: PHOSPHOROUS 2.6 mg/dL (2.5-4.9)
[2023-08-14 09:05] LABS: BILIRUBIN,TOTAL 0.7 mg/dL (0.2-1); CREATININE 0.5 mg/dL (0.55-1.3)
[2023-08-14] MEDS: HEPARIN NA (PORCINE) 5,000 UNITS/ML 1ML VIAL SQ SCH (10:32)
[2023-08-14] MEDS: FAMOTIDINE 20 MG TABLET PO SCH ×2 (10:33→22:27)
[2023-08-14] MEDS: THIAMINE HCL 100 MG TABLET (FP) PO SCH (10:34)
[2023-08-14] MEDS: POTASSIUM CHLORIDE 20 MEQ in DEXTROSE 5%-WATER - 1,000 ML IV SCH (17:11)
[2023-08-14] MEDS: SENNOSIDES 8.6MG TABLET (FP) PO SCH (22:28)
[2023-08-15] MEDS: LEVOTHYROXINE SODIUM 100 MCG 5 ML VIAL IVPUSH SCH (06:55)
[2023-08-15 07:59] LABS: POTASSIUM 4.4 mmol/L (3.5-5.1)
[2023-08-15 08:01] LABS: ALBUMIN 1.9 g/dl (3.4-5.0); BLOOD UREA NITROGEN 14.2 mg/dL (7-18); CALCIUM 7.2 mg/dL (8.5-10.1)
[2023-08-15 08:04] LABS: CREATININE 0.4 mg/dL (0.55-1.3)
[2023-08-15 08:06] LABS: BILIRUBIN,TOTAL 0.8 mg/dL (0.2-1); TOT PROT 4.9 g/dl (6.4-8.2)
[2023-08-15] MEDS: POTASSIUM CHLORIDE 20 MEQ in DEXTROSE 5%-WATER - 1,000 ML IV SCH (10:46)
[2023-08-15] MEDS: AMINO ACIDS/PROTEIN HYDROLYS 30 ML LIQUID.PKT PO SCH ×2 (16:09→19:09)
[2023-08-15] MEDS: POTASSIUM CHLORIDE ORAL LIQUID 20 MEQ/15 ML PO SCH ×2 (16:09→21:31)
[2023-08-15] MEDS: FAMOTIDINE 20 MG TABLET PO SCH ×2 (16:09→21:31)
[2023-08-15] MEDS: THIAMINE HCL 100 MG TABLET (FP) PO SCH (16:10)
[2023-08-15] MEDS: SENNOSIDES 8.6MG TABLET (FP) PO SCH (21:31)
[2023-08-16] MEDS: LEVOTHYROXINE SODIUM 100 MCG 5 ML VIAL IVPUSH SCH (06:43)
[2023-08-16] MEDS: AMINO ACIDS/PROTEIN HYDROLYS 30 ML LIQUID.PKT PO SCH ×3 (14:39→19:07)
[2023-08-16] MEDS: THIAMINE HCL 100 MG TABLET (FP) PO SCH ×2 (14:39→14:52)
[2023-08-16] MEDS: FAMOTIDINE 20 MG TABLET PO SCH ×3 (14:39→21:27)
[2023-08-16] MEDS: POTASSIUM CHLORIDE ORAL LIQUID 20 MEQ/15 ML PO SCH ×3 (14:39→21:27)
[2023-08-16 16:16] LABS: HEMATOCRIT 24.7 % (32.4-45.2); HEMOGLOBIN 8.2 GM/dL (10.7-15.3); MCH 30.3 pg (25.7-33.7); MCHC 33.2 g/dl (32.0-36.0); MEAN PLT VOLUME 6.5 fl (7.5-11.1); PLATELET COUNT 208 10^3/uL (134-434); RBC 2.71 M/mm3 (3.60-5.2); RDW 16.8 % (11.6-15.6); WHITE BLOOD COUNT 3.4 K/mm3 (4.0-10.0)
[2023-08-16 16:25] LABS: INR 1.35 (0.83-1.09); PROTHROMBIN TIME (PATIENT) 15.6 SEC (9.7-13.0)
[2023-08-16 16:28] LABS: ACTIVATED PTT 33.2 SECONDS (25.2-36.5)
[2023-08-16 17:22] LABS: ANISOCYTOSIS 1+; MACROCYTOSIS 0; OVALOCYTE 1+; PLATELET ESTIMATE NORMAL
[2023-08-16] MEDS: SENNOSIDES 8.6MG TABLET (FP) PO SCH (21:27)
[2023-08-17] MEDS: LEVOTHYROXINE SODIUM 100 MCG 5 ML VIAL IVPUSH SCH (06:35)
[2023-08-17] MEDS ORDERED: SODIUM PHOSPHATE/NA BIPHOS 133 ML ENEMA RC ONE (08:16)
[2023-08-17] MEDS: AMINO ACIDS/PROTEIN HYDROLYS 30 ML LIQUID.PKT PO SCH ×2 (10:50→18:51)
[2023-08-17] MEDS: FAMOTIDINE 20 MG TABLET PO SCH ×2 (10:51→21:13)
[2023-08-17] MEDS: POTASSIUM CHLORIDE ORAL LIQUID 20 MEQ/15 ML PO SCH (10:51)
[2023-08-17] MEDS: THIAMINE HCL 100 MG TABLET (FP) PO SCH (10:51)
[2023-08-17] MEDS: AMINO ACIDS 4.25%/D5W 1,000 ML IV SCH (13:30)
[2023-08-17] MEDS ORDERED: DEXTROSE 5%-NORMAL SALINE 1,000 ML IV SCH (20:45)
[2023-08-17] MEDS: SENNOSIDES 8.6MG TABLET (FP) PO SCH (21:13)
[2023-08-18] MEDS: AMINO ACIDS 4.25%/D5W 1,000 ML IV SCH (05:33)
[2023-08-18] MEDS: LEVOTHYROXINE SODIUM 100 MCG 5 ML VIAL IVPUSH SCH (07:19)
[2023-08-18 07:49] LABS: HEMATOCRIT 25.5 % (32.4-45.2); HEMOGLOBIN 8.2 GM/dL (10.7-15.3); MCHC 32.4 g/dl (32.0-36.0); MEAN CELL VOLUME 92.5 fl (80-96); MEAN PLT VOLUME 6.5 fl (7.5-11.1); PLATELET COUNT 214 10^3/uL (134-434); RBC 2.75 M/mm3 (3.60-5.2); RDW 16.6 % (11.6-15.6); WHITE BLOOD COUNT 3.4 K/mm3 (4.0-10.0)
[2023-08-18 08:08] LABS: POTASSIUM 3.3 mmol/L (3.5-5.1)
[2023-08-18 08:17] LABS: ALBUMIN 1.9 g/dl (3.4-5.0); BLOOD UREA NITROGEN 18.4 mg/dL (7-18); CALCIUM 7.4 mg/dL (8.5-10.1); MAGNESIUM 1.8 mg/dL (1.8-2.4)
[2023-08-18 08:20] LABS: BILIRUBIN,TOTAL 0.7 mg/dL (0.2-1)
[2023-08-18 08:21] LABS: CREATININE 0.4 mg/dL (0.55-1.3); PHOSPHOROUS 2.2 mg/dL (2.5-4.9)
[2023-08-18] MEDS: FAMOTIDINE 20 MG TABLET PO SCH ×2 (10:10→22:55)
[2023-08-18] MEDS: AMINO ACIDS/PROTEIN HYDROLYS 30 ML LIQUID.PKT PO SCH ×2 (10:10→19:42)
[2023-08-18] MEDS: THIAMINE HCL 100 MG TABLET (FP) PO SCH (10:11)
[2023-08-18] MEDS ORDERED: FENTANYL CITRATE/PF 50 MCG/ML VIAL ONE (11:41)
[2023-08-18] MEDS ORDERED: LIDOCAINE HCL 2% 100 MG/5 ML DISP.SYRIN ONE (11:41)
[2023-08-18] MEDS ORDERED: SUCCINYLCHOLINE CHLORIDE 200 MG/10 ML SYRINGE ONE (11:42)
[2023-08-18] MEDS ORDERED: PROPOFOL 20 ML ONE (11:42)
[2023-08-18] MEDS ORDERED: ROCURONIUM BROMIDE 50 MG/5 ML SYRINGE ONE (11:42)
[2023-08-18] MEDS ORDERED: ETOMIDATE 20 MG/10 ML VIAL IVPUSH ONE (11:43)
[2023-08-18] MEDS ORDERED: BUPIVACAINE HCL/PF 0.25% (2.5MG/ML) 10 ML VIAL ONE (11:52)
[2023-08-18] MEDS ORDERED: NEOSTIGMINE METHYLSULFATE 0.5 MG/1 ML - 10 ML MDV ONE (12:45)
[2023-08-18] MEDS ORDERED: GLYCOPYRROLATE 0.2 MG/1 ML VIAL ONE (12:46)
[2023-08-18] MEDS ORDERED: DEXTROSE 5%-NORMAL SALINE 1,000 ML IV SCH ×2 (12:54→13:49)
[2023-08-18] MEDS ORDERED: BUPIVACAINE HCL/PF 0.25% (2.5MG/ML) 10 ML VIAL IJ ONE (12:59)
[2023-08-18] MEDS ORDERED: METOPROLOL TARTRATE 5 MG/5 ML VIAL ONE (13:08)
[2023-08-18] MEDS ORDERED: ONDANSETRON 4 MG/2 ML VIAL IVPUSH PRN ×2 (13:27→13:49)
[2023-08-18] MEDS ORDERED: SODIUM CHLORIDE 1,000 ML IV SCH ×2 (13:30→13:49)
[2023-08-18] MEDS ORDERED: ACETAMINOPHEN INJECTION 100 ML IVPB ONE (13:31)
[2023-08-18] MEDS: ACETAMINOPHEN 1000 MG/100 ML BAG IVPB SCH ×2 (13:58→22:56)
[2023-08-18] MEDS ORDERED: POTASSIUM PHOSPHATE 30 MM in SODIUM CHLORIDE 500 ML IVPB ONE (14:00)
[2023-08-18] MEDS ORDERED: AMINO ACIDS/PROTEIN HYDROLYS 30 ML LIQUID.PKT PO SCH (17:30)
[2023-08-18] MEDS ORDERED: AMINO ACIDS 4.25%/D5W 1,000 ML IV SCH (19:15)
[2023-08-18] MEDS ORDERED: POTASSIUM CHLORIDE 20 MEQ in AMINO ACIDS 4.25%/D5W 1,000 ML IV SCH (19:15)
[2023-08-18] MEDS ORDERED: FAMOTIDINE 20 MG TABLET PO SCH (22:00)
[2023-08-18] MEDS ORDERED: SENNOSIDES 8.6MG TABLET (FP) PO SCH (22:00)
[2023-08-18] MEDS: SENNOSIDES 8.6MG TABLET (FP) PO SCH (22:55)
[2023-08-19] MEDS: ACETAMINOPHEN 1000 MG/100 ML BAG IVPB SCH ×2 (04:00→09:03)
[2023-08-19] MEDS: LEVOTHYROXINE SODIUM 100 MCG 5 ML VIAL IVPUSH SCH (06:27)
[2023-08-19] MEDS ORDERED: LEVOTHYROXINE SODIUM 100 MCG 5 ML VIAL IVPUSH SCH (07:00)
[2023-08-19 07:41] LABS: BASO % 0.6 % (0-2.0); EOS % 0.1 % (0-4.5); HEMATOCRIT 23.6 % (32.4-45.2); HEMOGLOBIN 7.7 GM/dL (10.7-15.3); LYMPH % 27.5 % (8-40); MCH 30.4 pg (25.7-33.7); MCHC 32.5 g/dl (32.0-36.0); MEAN CELL VOLUME 93.6 fl (80-96); MEAN PLT VOLUME 6.9 fl (7.5-11.1); MONO % 3.9 % (3.8-10.2); NEUT % 67.9 % (42.8-82.8); PLATELET COUNT 203 10^3/uL (134-434); RBC 2.52 M/mm3 (3.60-5.2); RDW 16.4 % (11.6-15.6); WHITE BLOOD COUNT 4.4 K/mm3 (4.0-10.0)
[2023-08-19 08:17] LABS: ALBUMIN 1.9 g/dl (3.4-5.0); BLOOD UREA NITROGEN 19.8 mg/dL (7-18); CO2 22 mmol/L (21-32); GLUCOSE,RANDOM 86 mg/dL (74-106)
[2023-08-19 08:20] LABS: CREATININE 0.4 mg/dL (0.55-1.3); SGOT/AST 19 U/L (15-37); SGPT/ALT 11 U/L (13-61)
[2023-08-19 08:21] LABS: TOT PROT 4.9 g/dl (6.4-8.2)
[2023-08-19 08:22] LABS: BILIRUBIN,TOTAL 0.7 mg/dL (0.2-1)
[2023-08-19 08:23] LABS: ALK PHOS 84 U/L (45-117)
[2023-08-19] MEDS: AMINO ACIDS/PROTEIN HYDROLYS 30 ML LIQUID.PKT PO SCH ×2 (09:04→18:17)
[2023-08-19 09:12] LABS: CHLORIDE 111 mmol/L (98-107); SODIUM 139 mmol/L (136-145)
[2023-08-19 09:14] LABS: ANION GAP 6 mmol/L (4-13); CALCIUM 6.9 mg/dL (8.5-10.1)
[2023-08-19] MEDS ORDERED: THIAMINE HCL 100 MG TABLET (FP) PO SCH (10:00)
[2023-08-19] MEDS: FAMOTIDINE 20 MG TABLET PO SCH ×2 (11:21→21:57)
[2023-08-19] MEDS: THIAMINE HCL 100 MG TABLET (FP) PO SCH (11:21)
[2023-08-19] MEDS: ASCORBIC ACID 250 MG TABLET (FP) PO SCH (13:36)
[2023-08-19] MEDS: MULTIVIT-MINERALS ORAL LIQUID PO SCH (13:36)
[2023-08-19] MEDS: ENOXAPARIN NA (PORCINE) 40 MG/0.4 ML DISP.SYRIN SQ SCH ×2 (14:36→21:58)
[2023-08-19 15:49] VITALS: RESP 20
[2023-08-19] MEDS ORDERED: WARFARIN NA 5 MG TABLET PO SCH ×2 (18:00)
[2023-08-19] MEDS ORDERED: WARFARIN NA 2.5 MG, WARFARIN NA 2 MG PO SCH (18:00)
[2023-08-19 19:00] LABS: INR 1.43 (0.83-1.09); PROTHROMBIN TIME (PATIENT) 16.5 SEC (9.7-13.0)
[2023-08-19] MEDS: SENNOSIDES 8.6MG TABLET (FP) PO SCH (21:58)
[2023-08-20] MEDS: LEVOTHYROXINE SODIUM 100 MCG 5 ML VIAL IVPUSH SCH (06:05)
[2023-08-20] MEDS: ENOXAPARIN NA (PORCINE) 40 MG/0.4 ML DISP.SYRIN SQ SCH (10:32)
[2023-08-20] MEDS: FAMOTIDINE 20 MG TABLET PO SCH (10:32)
[2023-08-20] MEDS: ASCORBIC ACID 250 MG TABLET (FP) PO SCH (10:32)
[2023-08-20] MEDS: THIAMINE HCL 100 MG TABLET (FP) PO SCH (10:32)
[2023-08-20] MEDS: AMINO ACIDS/PROTEIN HYDROLYS 30 ML LIQUID.PKT PO SCH (10:32)
[2023-08-20] MEDS: MULTIVIT-MINERALS ORAL LIQUID PO SCH (10:33)
[2023-08-20 11:01] VITALS: BP 121/79; PULSE 78; TEMP 98.8
== END 2023-08-20 11:17 | DRG 720 ==
LOC: JER 15:25 → JERBED 22:01 → J4W 07-30 19:28
PROVIDERS: ADMIT Student in an Organized Health Care Education/Training Program; ATTEND Family Medicine
PROC: 0DH64UZ Insertion of Feeding Device into Stomach, Percutaneous Endoscopic Approach (ICD-10-PCS; principal; 2023-08-19)
DX: A41.9 Sepsis, unspecified organism (principal); F03.90 Unspecified dementia, unspecified severity, without behavioral disturbance, psychotic disturbance, mood disturbance, and anxiety; E87.0 Hyperosmolality and hypernatremia; E87.6 Hypokalemia; E87.20 Acidosis, unspecified; K59.00 Constipation, unspecified; R62.7 Adult failure to thrive; N13.30 Unspecified hydronephrosis; N39.0 Urinary tract infection, site not specified; E43 Unspecified severe protein-calorie malnutrition; G93.41 Metabolic encephalopathy; Z68.1 Body mass index [BMI] 19.9 or less, adult; Z95.2 Presence of prosthetic heart valve; K56.7 Ileus, unspecified; D64.9 Anemia, unspecified; K59.81 Ogilvie syndrome; E86.0 Dehydration; R53.2 Functional quadriplegia; R64 Cachexia
CPT/HCPCS: 0241U-QW; 36415; 71045-TC-FY; 74018-TC-FY; 74019-TC-FY; 74177-TC; 80048; 80053; 81003; 82024; 82088; 82272; 82533; 82550; 82553; 82728; 82803; 82962; 83540; 83550; 83605; 83735; 84100; 84436; 84443; 84484; 85025; 85027; 85610; 85730; 86850; 86900; 86901; 87040; 87086; 87186; 87324; 87449; 87635; 87899; 93005; 93010; 94760; 97162-GP; 99285-25; J1644; J1756; Q9967

== ENCOUNTER 2023-12-12 12:19 | Inpatient (IN) | payer OTHER ==
[2023-12-12 13:29] LABS: BASO % 0.5 % (0-2.0); EOS % 1.8 % (0-4.5); HEMATOCRIT 24.2 % (32.4-45.2); HEMOGLOBIN 7.9 GM/dL (10.7-15.3); MCH 28.4 pg (25.7-33.7); MCHC 32.7 g/dl (32.0-36.0); MEAN CELL VOLUME 87.1 fl (80-96); MEAN PLT VOLUME 6.3 fl (7.5-11.1); MONO % 10.6 % (3.8-10.2); NEUT % 62.1 % (42.8-82.8); PLATELET COUNT 258 10^3/uL (134-434); RBC 2.78 M/mm3 (3.60-5.2); RDW 19.6 % (11.6-15.6); WHITE BLOOD COUNT 4.6 K/mm3 (4.0-10.0)
[2023-12-12 13:35] LABS: INR 2.76 (0.83-1.09); PROTHROMBIN TIME (PATIENT) 31.7 SEC (9.7-13.0)
[2023-12-12 13:38] LABS: ACTIVATED PTT 36.3 SECONDS (25.2-36.5)
[2023-12-12 13:44] LABS: VENOUS BASE EXCESS -0.7 mmol/L (-2-2); VENOUS O2 SATURATION 72.8 % (70-80); VENOUS PCO2 41.9 mmHg (38-52); VENOUS PH 7.383 (7.310-7.410)
[2023-12-12 13:46] LABS: POTASSIUM 4.3 mmol/L (3.5-5.1)
[2023-12-12 13:51] LABS: CALCIUM 7.5 mg/dL (8.5-10.1)
[2023-12-12 13:52] LABS: BLOOD UREA NITROGEN 30.1 mg/dL (7-18)
[2023-12-12 13:55] LABS: CREATININE 0.4 mg/dL (0.55-1.3)
[2023-12-12 13:56] LABS: BILIRUBIN,TOTAL 0.5 mg/dL (0.2-1); TOT PROT 6.1 g/dl (6.4-8.2)
[2023-12-12 13:59] VITALS: BMI 15.7
[2023-12-12 14:05] LABS: LACTIC ACID 2.1 mmol/L (0.4-2.0)
[2023-12-12] MEDS ORDERED: PHYTONADIONE 10 MG/1 ML AMP ONE (14:18)
[2023-12-12] MEDS ORDERED: PANTOPRAZOLE SODIUM 40 MG VIAL ONE ×2 (14:18→15:09)
[2023-12-12] MEDS ORDERED: dilTIAZem HCL 125 MG/25 ML - 25 ML VIAL ONE (15:00)
[2023-12-12] MEDS: dilTIAZem HCL 50 MG/10 ML - 10 ML VIAL IVPUSH ONE (15:16)
[2023-12-12] MEDS: PHYTONADIONE 10 MG/1 ML AMP IVPB ONE (15:16)
[2023-12-12] MEDS: PANTOPRAZOLE SODIUM 40 MG VIAL IVPUSH ONE (15:16)
[2023-12-12] MEDS: SODIUM CHLORIDE 1,000 ML IV STA (15:17)
[2023-12-12] MEDS: PANTOPRAZOLE SODIUM 160 MG in SODIUM CHLORIDE 290 ML IVPB SCH (19:03)
[2023-12-12 19:04] LABS: BASO % 0.4 % (0-2.0); EOS % 0.2 % (0-4.5); HEMATOCRIT 21.8 % (32.4-45.2); HEMOGLOBIN 7.2 GM/dL (10.7-15.3); LYMPH % 16.1 % (8-40); MCH 28.5 pg (25.7-33.7); MCHC 32.9 g/dl (32.0-36.0); MEAN CELL VOLUME 86.6 fl (80-96); MEAN PLT VOLUME 6.4 fl (7.5-11.1); MONO % 8.6 % (3.8-10.2); NEUT % 74.7 % (42.8-82.8); PLATELET COUNT 239 10^3/uL (134-434); RBC 2.52 M/mm3 (3.60-5.2); RDW 18.3 % (11.6-15.6); WHITE BLOOD COUNT 6.2 K/mm3 (4.0-10.0)
[2023-12-12] MEDS ORDERED: METOPROLOL TARTRATE 5 MG/5 ML VIAL ONE (21:59)
[2023-12-12] MEDS: METOPROLOL TARTRATE 5 MG/5 ML VIAL IVPUSH ONE (22:07)
[2023-12-13 08:00] LABS: POTASSIUM 3.8 mmol/L (3.5-5.1)
[2023-12-13 08:01] LABS: CALCIUM 7.4 mg/dL (8.5-10.1)
[2023-12-13 08:02] LABS: BLOOD UREA NITROGEN 42.7 mg/dL (7-18); MAGNESIUM 1.8 mg/dL (1.8-2.4)
[2023-12-13 08:05] LABS: CREATININE 0.4 mg/dL (0.55-1.3); PHOSPHOROUS 3.9 mg/dL (2.5-4.9)
[2023-12-13 08:21] LABS: BASO % 0.5 % (0-2.0); HEMATOCRIT 24.7 % (32.4-45.2); HEMOGLOBIN 8.4 GM/dL (10.7-15.3); LYMPH % 19.9 % (8-40); MCH 29.2 pg (25.7-33.7); MCHC 33.9 g/dl (32.0-36.0); MEAN CELL VOLUME 86.2 fl (80-96); MONO % 10.4 % (3.8-10.2); NEUT % 69.2 % (42.8-82.8); PLATELET COUNT 206 10^3/uL (134-434); RBC 2.87 M/mm3 (3.60-5.2); RDW 16.6 % (11.6-15.6); WHITE BLOOD COUNT 4.6 K/mm3 (4.0-10.0)
[2023-12-13] MEDS ORDERED: METOPROLOL TARTRATE 5 MG/5 ML VIAL IVPUSH PRN ×2 (10:35→15:48)
[2023-12-13] MEDS ORDERED: METOPROLOL TARTRATE 5 MG/5 ML VIAL ONE ×2 (11:29→15:50)
[2023-12-13] MEDS: METOPROLOL TARTRATE 5 MG/5 ML VIAL IVPUSH PRN ×2 (11:30→15:50)
[2023-12-13] MEDS ORDERED: ACETAMINOPHEN 1000 MG/100 ML BAG IVPB PRN (15:08)
[2023-12-13] MEDS: METOPROLOL TARTRATE 25 MG TABLET (FP) PEG SCH (16:34)
[2023-12-13] MEDS: POLYETHYLENE GLYCOL (HEALTHYLAX) 3350 17 GM PACKET GT SCH (21:13)
[2023-12-14 07:28] LABS: BASO % 0.9 % (0-2.0); HEMATOCRIT 20.4 % (32.4-45.2); LYMPH % 23.2 % (8-40); MCH 30.2 pg (25.7-33.7); MCHC 34.4 g/dl (32.0-36.0); MEAN CELL VOLUME 87.6 fl (80-96); MEAN PLT VOLUME 6.6 fl (7.5-11.1); MONO % 12.4 % (3.8-10.2); NEUT % 63.5 % (42.8-82.8); PLATELET COUNT 228 10^3/uL (134-434); RBC 2.33 M/mm3 (3.60-5.2); RDW 16.7 % (11.6-15.6); WHITE BLOOD COUNT 4.8 K/mm3 (4.0-10.0)
[2023-12-14 07:48] LABS: POTASSIUM 3.6 mmol/L (3.5-5.1)
[2023-12-14 07:51] LABS: BLOOD UREA NITROGEN 50.5 mg/dL (7-18); CALCIUM 7.7 mg/dL (8.5-10.1)
[2023-12-14 07:54] LABS: CREATININE 0.4 mg/dL (0.55-1.3)
[2023-12-14 07:56] LABS: BILIRUBIN,TOTAL 1.2 mg/dL (0.2-1); TOT PROT 5.8 g/dl (6.4-8.2)
[2023-12-14] MEDS: PANTOPRAZOLE SODIUM 40 MG VIAL IVPUSH SCH (09:00)
[2023-12-14] MEDS ORDERED: METOPROLOL TARTRATE 25 MG TABLET (FP) PEG SCH (10:00)
[2023-12-14] MEDS: FUROSEMIDE 40 MG/4 ML INJECTABLE VIAL IVPUSH ONE (11:56)
[2023-12-14] MEDS: D5-1/2NS+40 MEQ KCL - 40 MEQ/1,000 ML INFUS.BAG IV SCH (11:56)
[2023-12-14] MEDS ORDERED: FENTANYL PATCH WASTE TD PRN (12:04)
[2023-12-14] MEDS: fentaNYL 25mcg/hr PATCH.TD72 TD SCH (12:56)
[2023-12-14] MEDS: POTASSIUM CHLORIDE ORAL LIQUID 20 MEQ/15 ML PO SCH (12:59)
[2023-12-14 21:24] LABS: BLOOD UREA NITROGEN 43.7 mg/dL (7-18); CALCIUM 8.1 mg/dL (8.5-10.1); CREATININE 0.5 mg/dL (0.55-1.3); POTASSIUM 3.9 mmol/L (3.5-5.1)
[2023-12-15 06:34] LABS: HEMATOCRIT 28.6 % (32.4-45.2); HEMOGLOBIN 9.7 GM/dL (10.7-15.3); MCH 30.3 pg (25.7-33.7); MCHC 34.1 g/dl (32.0-36.0); MEAN CELL VOLUME 88.9 fl (80-96); MEAN PLT VOLUME 6.4 fl (7.5-11.1); PLATELET COUNT 217 10^3/uL (134-434); RBC 3.21 M/mm3 (3.60-5.2); RDW 15.8 % (11.6-15.6)
[2023-12-15 06:50] LABS: POTASSIUM 4.5 mmol/L (3.5-5.1)
[2023-12-15 06:51] LABS: CALCIUM 8.2 mg/dL (8.5-10.1)
[2023-12-15 06:52] LABS: BLOOD UREA NITROGEN 43.7 mg/dL (7-18)
[2023-12-15 06:55] LABS: CREATININE 0.4 mg/dL (0.55-1.3)
[2023-12-15] MEDS ORDERED: LEVOTHYROXINE NA 25 MCG TABLET (FP) PO SCH (10:00)
[2023-12-15] MEDS: LEVOTHYROXINE NA 50 MCG TABLET (FP) PO SCH (10:18)
[2023-12-15 14:59] LABS: HEMATOCRIT 29.2 % (32.4-45.2); HEMOGLOBIN 9.8 GM/dL (10.7-15.3); MCH 30.2 pg (25.7-33.7); MCHC 33.4 g/dl (32.0-36.0); MEAN CELL VOLUME 90.2 fl (80-96); MEAN PLT VOLUME 6.2 fl (7.5-11.1); PLATELET COUNT 221 10^3/uL (134-434); RBC 3.24 M/mm3 (3.60-5.2); RDW 16.3 % (11.6-15.6); WHITE BLOOD COUNT 5.5 K/mm3 (4.0-10.0)
[2023-12-16 06:44] LABS: HEMATOCRIT 28.9 % (32.4-45.2); HEMOGLOBIN 9.7 GM/dL (10.7-15.3); MCH 30.7 pg (25.7-33.7); MCHC 33.6 g/dl (32.0-36.0); MEAN CELL VOLUME 91.3 fl (80-96); MEAN PLT VOLUME 6.5 fl (7.5-11.1); PLATELET COUNT 222 10^3/uL (134-434); RBC 3.17 M/mm3 (3.60-5.2); RDW 15.7 % (11.6-15.6); WHITE BLOOD COUNT 5.8 K/mm3 (4.0-10.0)
[2023-12-16 08:39] LABS: POTASSIUM 4.9 mmol/L (3.5-5.1)
[2023-12-16 08:42] LABS: ALBUMIN 2.1 g/dl (3.4-5.0)
[2023-12-16 08:45] LABS: CREATININE 0.3 mg/dL (0.55-1.3)
[2023-12-16 08:47] LABS: BILIRUBIN,TOTAL 1.9 mg/dL (0.2-1); TOT PROT 5.9 g/dl (6.4-8.2)
[2023-12-16] MEDS: fentaNYL 50mcg/hr PATCH.TD72 TD SCH (10:17)
[2023-12-16 10:43] LABS: ACTIVATED PTT 28.8 SECONDS (25.2-36.5); INR 1.65 (0.83-1.09)
[2023-12-16] MEDS ORDERED: INSULIN (NOVOLOG) ASPART 100 UNITS/ML 10ML VIAL ONE (14:15)
[2023-12-16] MEDS: WARFARIN NA 2.5 MG TABLET PO ONE (17:11)
[2023-12-17 06:47] LABS: BASO % 0.3 % (0-2.0); EOS % 0.3 % (0-4.5); HEMATOCRIT 30.8 % (32.4-45.2); HEMOGLOBIN 10.1 GM/dL (10.7-15.3); LYMPH % 16.9 % (8-40); MCH 30.7 pg (25.7-33.7); MCHC 32.8 g/dl (32.0-36.0); MEAN CELL VOLUME 93.6 fl (80-96); MEAN PLT VOLUME 6.7 fl (7.5-11.1); MONO % 11.4 % (3.8-10.2); NEUT % 71.1 % (42.8-82.8); PLATELET COUNT 214 10^3/uL (134-434); RBC 3.29 M/mm3 (3.60-5.2); RDW 16.7 % (11.6-15.6); WHITE BLOOD COUNT 6.4 K/mm3 (4.0-10.0)
[2023-12-17 06:48] LABS: INR 1.78 (0.83-1.09); PROTHROMBIN TIME (PATIENT) 20.5 SEC (9.7-13.0)
[2023-12-17] MEDS: SODIUM CHLORIDE 0.9% 500 ML INFUS.BAG IV ONE ×2 (09:23→10:07)
[2023-12-17] MEDS: AMINO ACIDS/PROTEIN HYDROLYS 30 ML LIQUID.PKT PO SCH (09:25)
[2023-12-17] MEDS: ASCORBIC ACID 500 MG/5 ML UNIT DOSE CUP PEG SCH (09:25)
[2023-12-17] MEDS: FAMOTIDINE 20 MG TABLET PO SCH (09:25)
[2023-12-17 09:32] LABS: POTASSIUM 5.2 mmol/L (3.5-5.1)
[2023-12-17 09:35] LABS: BLOOD UREA NITROGEN 27.1 mg/dL (7-18)
[2023-12-17 09:37] LABS: CREATININE 0.4 mg/dL (0.55-1.3)
[2023-12-17] MEDS: SODIUM ZIRCONIUM CYCLOSILICATE (LOKELMA) 5 GM PACKET PO SCH (15:00)
[2023-12-17] MEDS ORDERED: ACETAMINOPHEN 1000 MG/100 ML BAG IVPB PRN (15:19)
[2023-12-17] MEDS ORDERED: POTASSIUM CHLORIDE ORAL LIQUID 20 MEQ/15 ML PO SCH (22:00)
[2023-12-18 06:34] LABS: POTASSIUM 4.6 mmol/L (3.5-5.1)
[2023-12-18 06:37] LABS: CALCIUM 7.5 mg/dL (8.5-10.1)
[2023-12-18 06:38] LABS: BLOOD UREA NITROGEN 35.7 mg/dL (7-18)
[2023-12-18 06:41] LABS: CREATININE 0.4 mg/dL (0.55-1.3)
[2023-12-18] MEDS ORDERED: ACETAMINOPHEN 1000 MG/100 ML BAG IVPB PRN (08:28)
[2023-12-18] MEDS: WARFARIN NA 2.5 MG TABLET PEG SCH (17:38)
[2023-12-18] MEDS: METOPROLOL TARTRATE 25 MG TABLET (FP) PEG SCH (17:39)
[2023-12-18] MEDS ORDERED: WARFARIN NA 2.5 MG TABLET PO ONE (18:00)
[2023-12-18] MEDS: ACETAMINOPHEN 1000 MG/100 ML BAG IVPB PRN (18:05)
[2023-12-19 10:17] LABS: INR 1.65 (0.83-1.09)
[2023-12-19] MEDS: FENTANYL PATCH WASTE TD PRN (19:38)
[2023-12-20 07:55] LABS: BASO % 0.5 % (0-2.0); EOS % 2.3 % (0-4.5); HEMATOCRIT 27.3 % (32.4-45.2); HEMOGLOBIN 8.9 GM/dL (10.7-15.3); LYMPH % 15.8 % (8-40); MCH 30.5 pg (25.7-33.7); MCHC 32.5 g/dl (32.0-36.0); MEAN CELL VOLUME 93.6 fl (80-96); MEAN PLT VOLUME 6.7 fl (7.5-11.1); MONO % 8.7 % (3.8-10.2); NEUT % 72.7 % (42.8-82.8); PLATELET COUNT 233 10^3/uL (134-434); RBC 2.91 M/mm3 (3.60-5.2); RDW 16.4 % (11.6-15.6); WHITE BLOOD COUNT 5.7 K/mm3 (4.0-10.0)
[2023-12-20 07:56] LABS: INR 1.59 (0.83-1.09); PROTHROMBIN TIME (PATIENT) 18.4 SEC (9.7-13.0)
[2023-12-20 08:16] LABS: POTASSIUM 4.4 mmol/L (3.5-5.1)
[2023-12-20 08:22] LABS: BLOOD UREA NITROGEN 41.7 mg/dL (7-18); CALCIUM 7.6 mg/dL (8.5-10.1)
[2023-12-20 08:25] LABS: CREATININE 0.3 mg/dL (0.55-1.3)
[2023-12-20 16:31] VITALS: BP 93/54; PULSE 111; RESP 13; TEMP 98.5
== END 2023-12-20 16:30 | DRG 253 ==
LOC: JER 12:19 → JERBED 15:18 → J2W 12-13 11:55
PROVIDERS: ADMIT Internal Medicine; ATTEND Internal Medicine
PROC: 30233N1 Transfusion of Nonautologous Red Blood Cells into Peripheral Vein, Percutaneous Approach (ICD-10-PCS; principal; 2023-12-12)
PROC: 30233L1 Transfusion of Nonautologous Fresh Plasma into Peripheral Vein, Percutaneous Approach (ICD-10-PCS; 2023-12-12)
PROC: 30233K1 Transfusion of Nonautologous Frozen Plasma into Peripheral Vein, Percutaneous Approach (ICD-10-PCS; 2023-12-12)
DX: K62.5 Hemorrhage of anus and rectum (principal); I48.91 Unspecified atrial fibrillation; Z95.2 Presence of prosthetic heart valve; R53.2 Functional quadriplegia; G30.9 Alzheimer's disease, unspecified; F02.80 Dementia in other diseases classified elsewhere, unspecified severity, without behavioral disturbance, psychotic disturbance, mood disturbance, and anxiety; I95.89 Other hypotension; E43 Unspecified severe protein-calorie malnutrition; E87.6 Hypokalemia; R64 Cachexia; Z68.1 Body mass index [BMI] 19.9 or less, adult; R62.7 Adult failure to thrive
CPT/HCPCS: 36415; 36430; 71045-TC-FY; 80048; 80053; 82272; 82607; 82728; 82803; 83540; 83550; 83605; 83735; 84100; 84443; 84484; 85025; 85027; 85610; 85730; 86850; 86900; 86901; 86922; 87040; 87635; 93005; 93010; 93306-TC; 99291; J0131; P9017; P9038; P9058

== ENCOUNTER 2024-01-23 17:39 | Emergency (ER) | payer OTHER ==
[2024-01-23 18:05] VITALS: TEMP 97.6; BMI 18.3
[2024-01-23 19:59] VITALS: BP 135/93; PULSE 114; RESP 20
== END 2024-01-23 20:04 ==
LOC: JER 17:39
DX: K94.23 Gastrostomy malfunction (principal)
CPT/HCPCS: 74018-TC-FY; 99283-25

== ENCOUNTER 2024-02-12 13:38 | Emergency (ER) | payer OTHER ==
[2024-02-12 14:05] VITALS: BMI 18.3
[2024-02-12 15:15] LABS: BASO % 0.3 % (0-2.0); EOS % 0.3 % (0-4.5); HEMATOCRIT 30.9 % (32.4-45.2); HEMOGLOBIN 10.1 GM/dL (10.7-15.3); LYMPH % 5.6 % (8-40); MCH 31.2 pg (25.7-33.7); MCHC 32.6 g/dl (32.0-36.0); MEAN CELL VOLUME 95.9 fl (80-96); MONO % 5.1 % (3.8-10.2); NEUT % 88.7 % (42.8-82.8); PLATELET COUNT 331 10^3/uL (134-434); RBC 3.22 M/mm3 (3.60-5.2); RDW 19.8 % (11.6-15.6); WHITE BLOOD COUNT 9.4 K/mm3 (4.0-10.0)
[2024-02-12 15:19] LABS: VENOUS O2 SATURATION 47.5 % (70-80)
[2024-02-12 15:22] LABS: INR 2.63 (0.83-1.09); PROTHROMBIN TIME (PATIENT) 29.4 SEC (9.7-13.0)
[2024-02-12 15:24] LABS: ACTIVATED PTT 37.8 SECONDS (25.2-36.5); EPI CELLS 1 /uL (0-25.1); HYALINE CASTS 0 /uL (0-3.1); URINE APPEARANCE CLOUDY; URINE BACTERIA >9,000 /uL (0-1359); URINE BILIRUBIN NEGATIVE (NEGATIVE); URINE COLOR DK YELLOW; URINE GLUCOSE (UA) NEGATIVE (NEGATIVE); URINE KETONE NEGATIVE (NEGATIVE); URINE LEUK ESTERASE 1+ (NEGATIVE); URINE NITRITE NEGATIVE (NEGATIVE); URINE PROTEIN 1+ (NEGATIVE); URINE RBC 15 /uL (0-23.9); URINE UROBILINOGEN 0.2 mg/dL (0.2-1.0); URINE WBC 124 /uL (0-25.8); VENOUS PCO2 81.8 mmHg (38-52); VENOUS PH 7.167 (7.310-7.410)
[2024-02-12 15:37] LABS: POTASSIUM 5.8 mmol/L (3.5-5.1)
[2024-02-12 15:39] LABS: CALCIUM 7.8 mg/dL (8.5-10.1)
[2024-02-12 15:40] LABS: ALBUMIN 2.1 g/dl (3.4-5.0); BLOOD UREA NITROGEN 32.8 mg/dL (7-18)
[2024-02-12 15:43] LABS: CREATININE 0.3 mg/dL (0.55-1.3)
[2024-02-12 15:44] LABS: BILIRUBIN,TOTAL 0.5 mg/dL (0.2-1)
[2024-02-12 15:45] LABS: TOT PROT 6.6 g/dl (6.4-8.2)
[2024-02-12] MEDS ORDERED: ALBUTEROL SO4 2.5/IPRATROPIUM 0.5 INH SOL 3 ML VIAL.NEB. NEB ONE (16:14)
[2024-02-12] MEDS: ALBUTEROL SO4 2.5/IPRATROPIUM 0.5 INH SOL 3 ML VIAL.NEB. NEB SCH (16:34)
[2024-02-12] MEDS ORDERED: PIPERACILLIN/TAZOB 4.5 GM 4.5 GM/100 ML BAG IVPB ONE (16:48)
[2024-02-12] MEDS ORDERED: VANCOMYCIN 1 GRAM (PRE-DOCKED) 1,000 MG/250 ML BAG IVPB ONE (16:48)
[2024-02-12] MEDS: PIPERACILLIN/TAZOB 4.5 GM 4.5 GM in DEXTROSE 5%-WATER 100 ML IVPB ONE (16:50)
[2024-02-12] MEDS: VANCOMYCIN 1,000 MG in DEXTROSE 5%-WATER - 250 ML IVPB ONE (17:20)
[2024-02-12 17:24] LABS: VENOUS BASE EXCESS -5.3 mmol/L (-2-2); VENOUS O2 SATURATION 38.8 % (70-80)
[2024-02-12 17:26] LABS: VENOUS PCO2 71.1 mmHg (38-52); VENOUS PH 7.152 (7.310-7.410)
[2024-02-12 18:31] VITALS: BP 94/60; PULSE 120; RESP 22; TEMP 96
== END 2024-02-12 22:37 | disposition expired ==
LOC: JER 13:38
PROC: 3E03329 Introduction of Other Anti-infective into Peripheral Vein, Percutaneous Approach (ICD-10-PCS; principal; 2024-02-12)
PROC: 3E03329 Introduction of Other Anti-infective into Peripheral Vein, Percutaneous Approach (ICD-10-PCS; 2024-02-12)
PROC: 3E03329 Introduction of Other Anti-infective into Peripheral Vein, Percutaneous Approach (ICD-10-PCS; 2024-02-12)
PROC: 3E0F7GC Introduction of Other Therapeutic Substance into Respiratory Tract, Via Natural or Artificial Opening (ICD-10-PCS; 2024-02-12)
DX: R09.02 Hypoxemia (principal); Z20.822 Contact with and (suspected) exposure to COVID-19
CPT/HCPCS: 0241U-QW; 36415; 71045-TC-FY; 71250-TC; 80053; 81003; 82803; 83605; 84484; 85025; 85610; 85730; 87040; 87086; 87186; 93005; 93010; 99285-25